=== PATIENT | female | born 1985 | race Caucasian/White ===

== ENCOUNTER 2020-08-17 20:20 | Emergency (ER) | payer BC ==
[~2020-08-17] VITALS: Ht 170.2 cm; Wt 60.7 kg
--- NOTE | 2020-08-17 20:50 | NUR ---
FIRST CONTACT WITH PT. PT SITTING UP IN [facility], NAD NOTED. PT REPORTS HAVING TAKEN A MEDICATION THIS AM AT 0900 TO ASSIST IN AN INCOMPLETE . ULTRASOUND AT 6 WEEKS GESTATION SHOWED NO HEART BEAT; NOW, AT 10 WEEKS. "I DIDN'T PASS IT NATURALLY, SO WE DECIDED IT WAS TIME TO TAKE THE MEDICATION". PT/SPOUSE REPORT HAVING A SYNCOPAL EPISODE ON TOILET TODAY WHILE PASSING LARGE AMOUNT OF VAGINAL BLOOD. EMS WAS CALLED TO HOME WHERE PT WAS FOUND TO HAVE POSITIVE ORTHOSTATIC VS. PT/SPOUSE DECIDED TO COME TO ED VIA PRIVATE VEHICLE. A2 PT ARRIVES A&OX4, PWD, AND IN NO DISTRESS. PT TRANSFERED SELF EASILY FROM WHEELCHAIR TO [facility] WO CO INCREASED DIZZINESS/LIGHT HEADEDNESS. PT DENIES PAIN/NAUSEA BUT REPORTS CONTINUED VAGINAL BLEEDING, 'I FEEL LIKE I'M BLEEDING A LOT". BP/SPO2/ECG MONITORING IN PLACE. VSS. IV ESTABLISHED, LABS DRAWN. IVF HUNG PER ERP ORDER. TO COMPLETE ORTHO VS UPON COMPLETION OF LITER BOLUS.
[2020-08-17] MEDS ORDERED: SODIUM CHLORIDE 0.9% 1,000ML IVBOLUS ONE ×2 (21:00→22:30)
[2020-08-17 21:23] LABS: ALANINE AMINOTRANSFERASE 15 U/L (12-78); ALBUMIN 3.6 g/dL (3.4-5.0); ANION GAP 10 mmol/L (5-15); CALCIUM 8.3 mg/dL (8.5-10.1); CHLORIDE 103 mmol/L (98-107); CREATININE 0.81 mg/dL (0.55-1.02)
[2020-08-17 21:24] LABS: BASOPHILS % (AUTO) 1 % (0-1); EOSINOPHILS % (AUTO) 1 % (1-7); LYMPHOCYTES % (AUTO) 32 % (22-44); MEAN CORPUSCULAR HEMOGLOBIN 29.3 pg (27.0-34.8); MEAN CORPUSCULAR HGB CONC 32.6 g/dL (32.4-35.8); MONOCYTES % (AUTO) 5 % (2-9); NEUTROPHILS % (AUTO) 62 % (42-75); PLATELET COUNT 354 x10^3/uL (130-400); RED BLOOD COUNT 4.23 x10^6/uL (3.82-5.3); RED CELL DISTRIBUTION WIDTH 12.8 % (9.6-15.2)
[2020-08-17 21:40] LABS: ALKALINE PHOSPHATASE 74 U/L (45-117); BILIRUBIN,TOTAL 0.3 mg/dL (0.2-1.0); TOTAL PROTEIN 7.5 g/dL (6.4-8.2)
[2020-08-17 21:50] LABS: MD SCAN
[2020-08-17] MEDS ORDERED: POTASSIUM CHLORIDE 20 MEQ TAB.ER.PRT ONE (21:57)
[2020-08-17] MEDS ORDERED: POTASSIUM CHLORIDE 20 MEQ TAB.ER.PRT PO ONE (22:00)
--- NOTE | 2020-08-17 22:01 | NUR ---
PT MEDICATED PER EMAR W POTASSIUM. K+ 2.8. NSR ON MONITOR.
--- NOTE | 2020-08-17 22:30 | NUR ---
PT W TACHYCARDIA TO 140 UPON STANDING FOR ORTHOSTATICS. BP STABLE. ERP AWARE. ORDERS RECEIVED FOR SECOND LITER NS.
[2020-08-17 23:00] VITALS: BP 125/80
--- NOTE | 2020-08-17 23:12 | NUR ---
REPEAT VS DISCUSSED WITH ERP. NO FURTHER ORDERS RECEIVED. POC IS DC
== END 2020-08-18 | disposition home or self-care (01) ==
LOC: ED 23:32
DX: O03.4 Incomplete spontaneous abortion without complication (principal); R00.0 Tachycardia, unspecified; E87.6 Hypokalemia
CPT/HCPCS: 36415; 76801; 80053; 84702; 85025; 86901; 93005; 96360; 99285; J7030

== ENCOUNTER 2020-08-23 11:28 | Day surgery (SDC) | payer BC ==
[~2020-08-23] VITALS: Ht 170.2 cm; Wt 58.7 kg
[~2020-08-23 11:28] MED LIST: FENTANYL PF 100 MCG/2ML ONE; METHYLERGONOVINE 0.2 MG/ML IM ONE; MIDAZOLAM 1 MG/ML, 2ML ONE; MISOPROSTOL 200 MCG TABLET ONE; OXYTOCIN 10 UNITS/ML, 1ML ONE; SILVER NITRATE STICK TP ONE
[2020-08-23] MEDS ORDERED: LACTATED RINGERS 1,000 ML IV SCH (12:30)
[2020-08-23] MEDS ORDERED: CHLORHEXIDINE 15 ML UDC MM ONE (12:30)
[2020-08-23 12:33] VITALS: BP 129/81
[2020-08-23] MEDS ORDERED: DEXAMETHASONE 4 MG/ML, 1ML ONE (12:39)
[2020-08-23] MEDS ORDERED: KETOROLAC 30 MG/1 ML ONE (12:39)
[2020-08-23] MEDS ORDERED: PROPOFOL 10 MG/ML, 50ML ONE (12:39)
[2020-08-23] MEDS ORDERED: PROPOFOL 10 MG/ML, 20ML ONE (12:48)
[2020-08-23] MEDS ORDERED: CEFAZOLIN 1,000 MG ONE (12:48)
[2020-08-23] MEDS ORDERED: ONDANSETRON 2MG/ML, 2ML ONE (12:48)
[2020-08-23] MEDS ORDERED: ACETAMINOPHEN 325 MG TABLET PO PRN (13:00)
[2020-08-23] MEDS ORDERED: PROMETHAZINE 25 MG/ML, 1ML IVPush PRN (13:00)
[2020-08-23] MEDS ORDERED: OXYcodone 5 MG/5 ML ORAL.SOL UDC PO PRN (13:00)
[2020-08-23] MEDS ORDERED: MEPERIDINE/PF 25MG/0.5ML IVPush PRN (13:00)
[2020-08-23] MEDS ORDERED: METHOCARBAMOL 1,000 MG in DEXTROSE 5% 100 ML IV PRN (13:00)
[2020-08-23] MEDS ORDERED: LORazepam 2 MG/ML, 1ML IVPush PRN (13:00)
[2020-08-23] MEDS ORDERED: FENTANYL PF 100 MCG/2ML IV PRN (13:00)
[2020-08-23] MEDS ORDERED: NO MEDS PER PATIENT (13:14)
[2020-08-23] MEDS ORDERED: PROMETHAZINE 25 MG/ML, 1ML ONE (13:48)
== END 2020-08-23 14:55 | disposition home or self-care (01) ==
LOC: OUT 11:28
PROVIDERS: ATTEND Obstetrics & Gynecology
DX: O02.1 Missed abortion (principal); N96 Recurrent pregnancy loss; Z20.828 Contact with and (suspected) exposure to other viral communicable diseases; Z98.890 Other specified postprocedural states; Z72.89 Other problems related to lifestyle; Z80.3 Family history of malignant neoplasm of breast; Z82.49 Family history of ischemic heart disease and other diseases of the circulatory system; Z79.899 Other long term (current) drug therapy
CPT/HCPCS: 36415; 59820; 86850; 86900; 87635; 88305; J0690; J1100; J1885; J2250; J2405; J2550; J2590; J2704; J3010; J2210

== ENCOUNTER → 2021-01-20 | Outpatient (CLI) | payer BC ==
[~2021-01-20] MED LIST changes: -FENTANYL PF 100 MCG/2ML ONE; +LIDOCAINE 1%, 10ML ONE; -METHYLERGONOVINE 0.2 MG/ML IM ONE; -MIDAZOLAM 1 MG/ML, 2ML ONE; -MISOPROSTOL 200 MCG TABLET ONE; +NO MEDS PER PATIENT; -OXYTOCIN 10 UNITS/ML, 1ML ONE; -SILVER NITRATE STICK TP ONE
== END | disposition home or self-care (01) ==
LOC: RAD 13:16
PROVIDERS: ATTEND Physician Assistant Medical
DX: R19.09 Other intra-abdominal and pelvic swelling, mass and lump (principal)
CPT/HCPCS: 38505; 76942; 88173; 88305; J3490